=== PATIENT | female | born 2000 | race Two or more races ===

== ENCOUNTER 2021-03-13 00:38 | Emergency (ER) | payer SELFPAY ==
[~2021-03-13] VITALS: Ht 154.9 cm; Wt 65.8 kg
--- NOTE | 2021-03-13 01:13 | NUR ---
URINE COLLECTED AND SENT TO THE LAB.
[2021-03-13] MEDS ORDERED: IBUPROFEN 400 MG TABLET PO ONE (01:30)
[2021-03-13] MEDS ORDERED: IBUPROFEN 400 MG TABLET ONE ×2 (02:06→02:38)
--- NOTE | 2021-03-13 02:45 | NUR ---
Patient discharged to home in stable condition. Written and verbal after care instructions given. Patient verbalizes understanding of instruction.
[2021-03-13 03:11] VITALS: BP 112/68
== END 2021-03-13 03:12 | disposition home or self-care (01) ==
LOC: ER 01:06
DX: M54.6 Pain in thoracic spine (principal)
CPT/HCPCS: 72074-TC; 84703-TC